=== PATIENT | male | born 2000 | race Hispanic/Latino ===

== ENCOUNTER 2022-05-29 18:59 | Emergency (ER) | payer MEDICAID, OTHER ==
[~2022-05-29] VITALS: Ht 193 cm; Wt 149.7 kg
[~2022-05-29 18:59] MED LIST: IBUP-2070 PO
[2022-05-29] MEDS ORDERED: KETOROLAC 60 MG VIAL (30MG/ML) IM ONE (20:30)
[2022-05-29] MEDS ORDERED: IBUP-1493 PO (21:09)
[2022-05-29 21:40] VITALS: BP 127/76
== END 2022-05-29 21:42 | disposition home or self-care (01) ==
LOC: EDH 18:59
DX: S90.32XA Contusion of left foot, initial encounter (principal); I10 Essential (primary) hypertension; Z79.899 Other long term (current) drug therapy; X58.XXXA Exposure to other specified factors, initial encounter; Y93.89 Activity, other specified; Y92.89 Other specified places as the place of occurrence of the external cause; Y99.8 Other external cause status
CPT/HCPCS: 99284; 73600; 73620; 73590; 96372; J1885

== ENCOUNTER 2022-08-07 10:38 | Emergency (ER) | payer MEDICAID, OTHER ==
[~2022-08-07] VITALS: Ht 193 cm; Wt 158.8 kg
[~2022-08-07 10:38] MED LIST changes: +IBUP-1493 PO
[2022-08-07] MEDS ORDERED: KETOROLAC 60 MG VIAL (30MG/ML) IM ONE (11:30)
[2022-08-07] MEDS ORDERED: CYCL10TA16 PO (11:32)
[2022-08-07] MEDS ORDERED: NAPR500T6 PO (11:32)
[2022-08-07 12:11] VITALS: BP 155/89
== END 2022-08-07 12:12 | disposition home or self-care (01) ==
LOC: EDH 10:38
DX: S39.012A Strain of muscle, fascia and tendon of lower back, initial encounter (principal); I10 Essential (primary) hypertension; X50.0XXA Overexertion from strenuous movement or load, initial encounter; Y93.89 Activity, other specified; Y92.89 Other specified places as the place of occurrence of the external cause; Y99.8 Other external cause status
CPT/HCPCS: 99283; 96372; J1885

== ENCOUNTER 2023-05-30 13:42 | Emergency (ER) | payer MEDICAID, OTHER ==
[~2023-05-30] VITALS: Ht 193 cm; Wt 181.4 kg
[~2023-05-30 13:42] MED LIST changes: +CYCL10TA16 PO; +NAPR500T6 PO; +PRED20TA3 PO
[2023-05-30] MEDS ORDERED: METH4TAB3 PO (16:09)
[2023-05-30] MEDS ORDERED: IBUP-2077 PO (16:09)
[2023-05-30] MEDS: CYCLOBENZAPRINE HCL 10 MG TABLET PO ONE (16:34)
[2023-05-30] MEDS: DEXAMETHASONE SOD PHOSPHATE 4 MG/ML 1ML VIAL IM ONE (16:34)
[2023-05-30] MEDS: IBUPROFEN 800 MG TAB PO ONE (16:35)
[2023-05-30 16:53] VITALS: BP 155/98; PULSE 78; RESP 18; O2SAT 97
== END 2023-05-30 16:56 | disposition home or self-care (01) ==
LOC: EDH 13:42
DX: M54.32 Sciatica, left side (principal); M54.31 Sciatica, right side; M54.50 Low back pain, unspecified; E66.01 Morbid (severe) obesity due to excess calories; Z68.42 Body mass index [BMI] 45.0-49.9, adult; I10 Essential (primary) hypertension; Z79.899 Other long term (current) drug therapy; Z98.890 Other specified postprocedural states
CPT/HCPCS: 99283; 96372; J1100

== ENCOUNTER 2024-01-24 11:28 | Emergency (ER) | payer SELFPAY ==
[~2024-01-24] VITALS: Ht 193 cm; Wt 179.2 kg
[~2024-01-24 11:28] MED LIST changes: +IBUP-2077 PO; +METH4TAB3 PO; +NAPR-1506 PO; -NAPR500T6 PO
[2024-01-24] MEDS: ketOROlac 30MG VIAL (30MG/ML) IM ONE (11:41)
[2024-01-24] MEDS: ORPHENADRINE 60MG/2ML IM ONE (11:42)
[2024-01-24] MEDS: TRIAMCINOLONE ACETONIDE 40 MG/ML 1ML VIAL IM ONE (11:42)
[2024-01-24 11:51] VITALS: BP 139/88; PULSE 61; RESP 18; TEMP 98.6; O2SAT 97
[2024-01-24] MEDS ORDERED: METH4TAB3 PO (12:34)
[2024-01-24] MEDS ORDERED: KETO10TA2 PO (12:34)
[2024-01-24] MEDS ORDERED: CYCL10TA16 PO (12:34)
== END 2024-01-24 12:51 | disposition home or self-care (01) ==
LOC: EDH 11:28
DX: S39.012A Strain of muscle, fascia and tendon of lower back, initial encounter (principal); E66.01 Morbid (severe) obesity due to excess calories; I10 Essential (primary) hypertension; Z79.1 Long term (current) use of non-steroidal anti-inflammatories (NSAID); Z98.890 Other specified postprocedural states; W18.39XA Other fall on same level, initial encounter; Y93.89 Activity, other specified; Y92.89 Other specified places as the place of occurrence of the external cause; Y99.8 Other external cause status
CPT/HCPCS: 99284; 96372 ×3; J3301; J1885; J2360